=== PATIENT | female | born 1950 | race Two or more races ===

== ENCOUNTER 2024-09-14 08:26 | Emergency (ER) | payer MEDICARE, OTHER ==
[~2024-09-14] VITALS: Ht 144.8 cm; Wt 89.4 kg
[2024-09-14 08:39] VITALS: TEMP 98.3
[2024-09-14 09:01] LABS: BASOPHILS # (AUTO) 0.1 K/uL (0.0-0.2); BASOPHILS % (AUTO) 0.4 % (0.0-2.0); EOSINOPHILS % (AUTO) 0.2 % (0.0-6.0); HEMATOCRIT 38 % (33-45); HEMOGLOBIN 12.6 g/dL (11.5-14.8); LYMPHOCYTES # (AUTO) 1.2 K/uL (0.8-4.8); LYMPHOCYTES % (AUTO) 8.7 % (20.0-44.0); MEAN CORPUSCULAR HEMOGLOBIN 30 PG (26.0-33.0); MEAN CORPUSCULAR HGB CONC 33 g/dl (31.0-36.0); MEAN CORPUSCULAR VOLUME 89 fL (82-100); MONOCYTES # (AUTO) 0.5 K/uL (0.1-1.30); MONOCYTES % (AUTO) 3.5 % (2.0-12.0); NEUTROPHILS # (AUTO) 12.3 K/uL (1.8-8.9); NEUTROPHILS % (AUTO) 87.2 % (43.0-81.0); PLATELET COUNT (AUTO) 181 K/uL (150-450); RED BLOOD CELL COUNT(AUTO) 4.24 MIL/uL (4.0-5.2); RED CELL DISTRIBUTION WIDTH 12.8 % (11.5-15.0); WHITE BLOOD COUNT (AUTO) 14.1 K/uL (4.3-11.0)
[2024-09-14 09:14] LABS: ALANINE AMINOTRANSFERASE 12 U/L (12-78); ALBUMIN 3.9 g/dL (3.4-5.0); ALKALINE PHOSPHATASE 89 U/L (46-116); ASPARTATE AMINOTRANSFERASE 15 U/L (15-37); BILIRUBIN,DIRECT 0.1 mg/dL (0.0-0.2); BILIRUBIN,TOTAL 0.3 mg/dL (0.2-1.0); CARBON DIOXIDE 28 mmol/L (21-32); CHLORIDE 101 mmol/L (98-107); CREATININE 0.6 mg/dL (0.6-1.3); GLUCOSE 137 mg/dL (74-106); LIPASE 52 U/L (16-77); SODIUM SERUM 135 mmol/L (136-145); TOTAL PROTEIN, SERUM 7.4 g/dL (6.4-8.2); UREA NITROGEN, BLOOD 31 mg/dL (7-18)
[2024-09-14 09:44] LABS: APPEARANCE,URINE SLIGHTLY CLOUDY (CLEAR); BILIRUBIN,URINE NEGATIVE (NEGATIVE); BLOOD, URINE NEGATIVE Ery/uL (NEGATIVE); COLOR,URINE YELLOW (YELLOW); KETONES,URINE NEGATIVE (NEGATIVE); LEUKOCYTE ESTERASE ,URINE NEGATIVE (NEGATIVE); NITRITE, URINE NEGATIVE (NEGATIVE); PH,URINE 5.5 (5.0-8.0); PROTEIN,URINE TRACE mg/dl (NEGATIVE); UGLUCOSE NEGATIVE (NEGATIVE); UROBILINOGEN,URINE 0.2 EU/dL (0.2)
[2024-09-14 09:49] LABS: ADD URINE CULTURE NO; BACTERIA,URINE Rare /HPF (None Seen); RBC,URINE 0-2 /HPF (0-2); SQUAMOUS EPITHELIAL CELL,UR None Seen /HPF (None Seen); WBC,URINE 0-2 /HPF (0-3)
[2024-09-14] MEDS ORDERED: AMOX-430 PO (12:27)
[2024-09-14] MEDS ORDERED: ONDA4TAB11 PO (12:27)
[2024-09-14] MEDS ORDERED: MORPHINE SULFATE INJ 4 MG/ML DISP.SYRIN ONE (12:49)
[2024-09-14] MEDS ORDERED: ONDANSETRON HCL/PF 4 MG/2 ML VIAL ONE (12:49)
[2024-09-14] MEDS: MORPHINE SULFATE INJ 2 MG/ML DISP.SYRIN IV ONE (13:06)
[2024-09-14] MEDS: ONDANSETRON HCL/PF - ER 4 MG/2 ML VIAL IV ONE (13:08)
[2024-09-14 13:16] VITALS: BP 126/70; O2SAT 98
== END 2024-09-14 13:16 | disposition home or self-care (01) ==
LOC: ER 08:26
DX: D39.0 Neoplasm of uncertain behavior of uterus (principal); R10.9 Unspecified abdominal pain; K92.1 Melena; R11.0 Nausea; D72.829 Elevated white blood cell count, unspecified; E11.9 Type 2 diabetes mellitus without complications; I10 Essential (primary) hypertension
CPT/HCPCS: 99284; 74176; 85025; 80048; 83690; 80076; 81001; 36415; J2270; J2405 ×2

== ENCOUNTER 2025-05-09 06:52 | Emergency (ER) | payer MEDICARE, OTHER ==
[~2025-05-09] VITALS: Ht 142.2 cm; Wt 93.0 kg
[~2025-05-09 06:52] MED LIST: AMOX-430 PO; ONDA4TAB11 PO
[2025-05-09] MEDS ORDERED: IBUP-1955 PO (07:40)
[2025-05-09] MEDS ORDERED: METH4TAB17 PO (07:40)
[2025-05-09] MEDS ORDERED: LIDO30AD10 TP (07:40)
[2025-05-09] MEDS ORDERED: CYCL5TAB PO (07:40)
[2025-05-09] MEDS: LIDOCAINE 5% (PATCH) 1 EA PATCH TP STA (07:47)
[2025-05-09] MEDS: KETOROLAC TROMETHAMINE 15 MG/ML VIAL IM ONE (07:49)
[2025-05-09 08:16] VITALS: BP 166/53; TEMP 98.2; O2SAT 97
== END 2025-05-09 08:17 | disposition home or self-care (01) ==
LOC: ER 06:56
DX: M54.41 Lumbago with sciatica, right side (principal); I10 Essential (primary) hypertension; Z79.899 Other long term (current) drug therapy
CPT/HCPCS: 99283; 96372; J1885